=== PATIENT | female | born 1970 ===

== ENCOUNTER 2017-11-15 09:03 | Day surgery (SDC) | payer BC ==
[2017-11-15 11:14] VITALS: BMI 26.6
--- NOTE | 2017-11-15 11:37 | CP.SDSHP ---
Same Day Surgery H & P - History Proposed Procedure: US guided FNA of thyroid nodule Pre-Op Diagnosis: thyroid nodule - Impression Impression: Pt with complex right thyroid nodule extending into the isthmus. Plan US guided FNA. Pt. Evaluated Today:Candidate for Anesthesia & Procedure: No - Date & Time Date: 11/15/17 Time: 11:15 Short Stay Discharge - Short Stay Discharge Admitting Diagnosis/Reason for Visit: THYROID NODULE - E04.1 Disposition: HOME/ ROUTINE
--- NOTE | 2017-11-15 11:39 | PCM.SURG1 ---
Surgeon's Initial Post Op Note - Surgeon's Notes Surgeon: Jr James MD Consulting Systems Engineer: NONE Type of Anesthesia: Local Pre-Operative Diagnosis: thyroid nodule Operative Findings: COmplex 2 cm right thyroid nodule Post-Operative Diagnosis: thyroid nodule Operation Performed: US guided FNA of thyroid nodule Specimen/Specimens Removed: 25 g FNA x 5 passes Estimated Blood Loss: EBL {In ML}: 1 Blood Products Given: N/A Drains Used: No Drains Post-Op Condition: Fair Date of Surgery/Procedure: 11/15/17 Time of Surgery/Procedure: 11:35
--- NOTE | 2017-11-15 12:46 | US ---
PROCEDURE: Date of Procedure: 11/15/2017 PROCEDURE: 1. Ultrasound guided FNA of right thyroid nodule, CPT 07951 2. Ultrasound guidance for FNA, 24669 Medications: 3cc 1% Lidocaine HISTORY: Enlarged right thyroid nodule. TECHNIQUE: Following informed consent and procedure time-out, a limited ultrasound patient's neck confirmed the presence of a 2 cm complex right thyroid nodule which is predominantly solid and extending into the isthmus. After the patient's neck was prepped and draped in the usual sterile fashion, the skin was anesthetized with 1% lidocaine. Ultrasound-guided fine needle aspiration was then performed of the dominant right thyroid nodule. A total of 5 passes were made into the nodule with 25 gauge needle under ultrasound guidance. The FNA specimen was sent for routine pathology. Post biopsy ultrasound showed no hematoma. IMPRESSION: Ultrasound-guided FNA of the dominant right thyroid nodule.
== END 2017-11-15 12:15 | disposition home or self-care (01) ==
LOC: C.SPRAD 09:03
PROVIDERS: ATTEND Radiology Vascular & Interventional Radiology
DX: E04.1 Nontoxic single thyroid nodule (principal)